=== PATIENT | female | born 1955 | race Caucasian/White ===

== ENCOUNTER → 2017-05-15 | Outpatient (CLI) | payer BC ==
--- NOTE | 2017-05-15 14:14 | KCIC ---
MRI Lumbar Spine without contrast History: Low back pain, left leg pain for several months Technique: Multiplanar, multi sequential noncontrast MR imaging was performed of the lumbar spine. Contrast: None Comparison: None Findings: Lumbar vertebral body stature is preserved. There is negligible posterior subluxation L5 relative to S1. There is moderate to severe degenerative disc disease at L5-S1 greater on the right, associated degenerative endplate change and mild endplate edema. There is yybh-fq-ljfvcfmg degenerative disc disease at L3-4 and minimally at L4-5, minimal disc desiccation at L2-3. Conus terminates at L1. L2-L3: This level was not included on the axial images. There is negligible bulge. Spinal canal and neural foramina are adequate. L3-L4: There is minimal disc osteophyte complex and bulge. There is minimal facet degenerative change. There is mild narrowing of the far lateral recesses greater on the left. There is minimal narrowing of the inferior neural foramina bilaterally. L4-L5: There is ityn-mb-ijxvzvqr facet degenerative change and buckling of the ligamentum flavum. There is wckl-xy-swdwoffz narrowing of the far left lateral recess, mild narrowing of the far right lateral recess. There is left posterior annular tear. Neural foramina are adequate. L5-S1: There is minimal bulge, no significant impingement of the descending S1 nerve roots. There is mild facet degenerative change greater on the right. There is minimal narrowing the right neural foramen, left neural foramen adequate. Impression: 1. There is lelc-nq-ikztcxom narrowing of the far left lateral recess at L4-5, other minimal narrowing of the right lateral recess at L4-5 and bilaterally greater on the left at L3-4. 2. There is degenerative disc disease greatest at L5-S1, to lesser degree at L3-4 and minimally at L4-5. Electronically signed by: Gigi Arreola MD (05/15/2017 2:11 PM) [facility]
== END | disposition home or self-care (01) ==
LOC: KCIC MRI 12:51
PROVIDERS: ATTEND Nurse Practitioner
DX: M51.36 Other intervertebral disc degeneration, lumbar region (principal); M51.37 Other intervertebral disc degeneration, lumbosacral region
CPT/HCPCS: 72148

== ENCOUNTER → 2018-03-25 | Outpatient (CLI) | payer BC ==
[~2018-03-25] MED LIST: BUPIVACAINE MPF 0.5% 10 ML VIAL for KCIC. IJ ONE; IBUP200T58 PO; IOHEXOL 300 MG/ML 50 ML VIAL. INT ART ONE; LIDOCAINE 1% Multi-Dose 20 ML VIAL. ID ONE; LISI-334 PO; MELO7.5T29 PO; PREG75CA PO; SIMV5TAB5 PO; TOBR5DRO14 OD; methylPREDNISolone ACETATE 40 MG/ML VIAL. INT ART ONE
--- NOTE | 2018-03-25 17:05 | KCIC ---
PROCEDURE Therapeutic left hip injection using fluoroscopic guidance. HISTORY Hip pain. TECHNIQUE The procedure was explained to the patient as were potential risks, including infection, bleeding or allergic reaction. All questions were answered. Informed written and verbal consent was obtained. The hip was prepped and draped in the usual sterile manner. Following administration of local anesthetic, a 22-gauge spinal needle was advanced into the hip joint without difficulty, with care taken to avoid the vascular structures. Stylet was removed and following negative aspiration, a mixture of 4 cc Omnipaque-300, 2 cc (80 mg) Depo-Medrol, 4 cc bupivacaine and 4 cc 1% lidocaine were injected without difficulty. Fluoroscopy demonstrates uniform and satisfactory distribution of the injection through the hip. The needle was removed. There was good hemostasis at the injection site. The patient left in stable condition without immediate complication. Patient was advised as to potential postprocedural complications and advised to contact their physician or the emergency room in such event. A single spot image was obtained. FLUOROSCOPY TIME: 17 seconds Electronically signed by: Don Noriega MD (03/25/2018 5:02 PM) [facility]2
== END | disposition home or self-care (01) ==
LOC: KCIC 11:57
PROVIDERS: ATTEND Orthopaedic Surgery Sports Medicine
DX: M25.552 Pain in left hip (principal); G89.29 Other chronic pain; Z88.5 Allergy status to narcotic agent
CPT/HCPCS: 20610; 77002; J1030; Q9967

== ENCOUNTER → 2018-07-15 | Outpatient (CLI) | payer BC ==
[~2018-07-15] MED LIST changes: -BUPIVACAINE MPF 0.5% 10 ML VIAL for KCIC. IJ ONE; +CALC600T4 PO; +FERR325T14 PO; +FISH1CAP PO; -IOHEXOL 300 MG/ML 50 ML VIAL. INT ART ONE; +LEVO5TAB29 PO; -LIDOCAINE 1% Multi-Dose 20 ML VIAL. ID ONE; +MV-M1TAB54 PO; +SENN-161 PO; +SIMV40TA3 PO; +SIMV5TAB14 PO; -SIMV5TAB5 PO; +WARF-31 PO; +WARF3TAB50 PO; -methylPREDNISolone ACETATE 40 MG/ML VIAL. INT ART ONE
[2018-07-15 09:33] LABS: BASO % 1 % (0-3); EOS # 0.2 x10^3/uL (0.0-0.7); EOS % 5 % (0-3); HEMATOCRIT 42.7 % (36.0-47.0); HEMOGLOBIN 14.2 g/dL (12.0-15.5); LYMPH # 1.4 x10^3/uL (1.0-4.8); LYMPH % 35 % (24-48); MEAN CORPUSCULAR HEMOGLOBIN 31 pg (25-35); MEAN CORPUSCULAR HGB CONC 33 g/dL (31-37); MEAN CORPUSCULAR VOLUME 93 fL (79-100); MONO # 0.3 x10^3/uL (0.0-1.1); MONO % 7 % (0-9); NEUT % 52 % (31-73); PLATELET COUNT 171 x10^3/uL (140-400); RED BLOOD COUNT 4.62 x10^6/uL (3.50-5.40); WHITE BLOOD COUNT 3.9 x10^3/uL (4.0-11.0)
[2018-07-15 09:47] LABS: PROTHROMBIN TIME PATIENT 12.6 SEC (11.7-14.0)
[2018-07-15 09:51] LABS: ALBUMIN 3.8 g/dL (3.4-5.0); CALCIUM 9.6 mg/dL (8.5-10.1); CREATININE 0.8 mg/dL (0.6-1.0); GFR 72.7; POTASSIUM 4.4 mmol/L (3.5-5.1)
[2018-07-15 12:18] LABS: BILIRUBIN,URINE NEGATIVE (NEG); CLARITY,URINE CLOUDY; COLOR,URINE YELLOW; NITRITE,URINE NEGATIVE (NEG); PH,URINE 7.5; PROTEIN,URINE NEGATIVE (NEG-TRACE); UROBILINOGEN,URINE 0.2 mg/dL (0.2 mg/dL)
[2018-07-15 12:42] LABS: SQUAMOUS EPITHELIAL CELL,UR FEW /LPF
[2018-07-15 12:46] LABS: AMORPHOUS SEDIMENT,UR PRESENT /HPF; BACTERIA,URINE 0 /HPF (0-FEW); RBC,URINE OCC /HPF (0-2); WBC,URINE OCC /HPF (0-4)
--- NOTE | 2018-07-15 13:22 | EKG ---
[facility] [address] [place] [address] Test Date: 2018-07-15 Test Time: 12:42:05 Pat Name: LISA WARD Department: Room: Gender: F [employer]: : 1955 Requested By: RAHEL DANIEL Order Number: [id number] Reading MD: Miguel Sharif MD Measurements Intervals [place] Rate: 63 P: 78 SC: 172 QRS: 86 QRSD: 92 T: 57 QT: 406 QTc: 419 Interpretive Statements SINUS RHYTHM Electronically Signed On 07-16-2018 11:28:01 ON AIR TALENT by Miguel Sharif MD
--- NOTE | 2018-07-15 16:41 | RAD ---
Chest, 2 views, 07/15/2018: HISTORY: Preop evaluation for hip surgery The heart size is normal. A small dense nodule in the right upper lobe is probably a granuloma. No acute infiltrate is seen. There is no evidence of pleural fluid. Mild spurring is present in the spine. IMPRESSION: No acute cardiopulmonary abnormality is detected. Electronically signed by: Frankie Joiner MD (07/15/2018 4:38 PM) [facility]
== END | disposition home or self-care (01) ==
LOC: SURGPAT 13:04
PROVIDERS: ATTEND Orthopaedic Surgery Sports Medicine
DX: Z01.818 Encounter for other preprocedural examination (principal); M16.12 Unilateral primary osteoarthritis, left hip; M46.04 Spinal enthesopathy, thoracic region; I10 Essential (primary) hypertension
CPT/HCPCS: 36415; 71046; 80048; 81001; 82040; 85025; 85610; 85651; 85730; 87641; 93005

== ENCOUNTER 2018-07-29 08:17 | Inpatient (IN) | payer BC ==
[~2018-07-29] VITALS: Ht 157.5 cm; Wt 67.1 kg
[2018-07-29] VITALS (8 sets, daily range): BP systolic 97–119; BP diastolic 50–62
[~2018-07-29 08:17] MED LIST changes: +HYDROcodone/APAP 7.5/325MG 1 TAB TABLET PO PRN; +HYDROmorphone 2 MG/ML VIAL IV PRN; +IV RINGERS,LACTATED 1000ML 1,000 ML IV SCH; +LIDOCAINE 1% PF 2 ML VIAL. ID PRN; +MELOXICAM 7.5 MG TABLET PO PRN; +MORPHINE SULFATE 2 MG/ML VIAL. IV PRN; +MORPHINE SULFATE 5 MG, KETOROLAC 30MG VIAL 30 MG, ROPIVacaine 0.5% PF 60 ML, EPINEPHrin... INT ART ONE; +ONDANSETRON PF 4 MG/2 ML VIAL. IV PRN; +PROCHLORPERAZINE 10 MG/2 ML VIAL. IV PRN; -SENN-161 PO; +TRANEXAMIC ACID 1,000 MG in IV NS 50ML -- 1ST BAG INJ ONE; +TRANEXAMIC ACID 1,000 MG in IV NS 50ML -- 2ND BAG INJ ONE; -WARF-31 PO; -WARF3TAB50 PO; +fentaNYL PF VIAL 100 MCG/2 ML VIAL IV PRN
[2018-07-29] MEDS ORDERED: WARF-31 PO (08:54)
[2018-07-29] MEDS ORDERED: SCOPOLAMINE 1.5MG PATCH. TD ONE ×2 (09:00→09:02)
[2018-07-29 09:23] LABS: PROTHROMBIN TIME PATIENT 12.9 SEC (11.7-14.0)
[2018-07-29] MEDS ORDERED: MIDAZOLAM HCL/PF 2 MG/2 ML VIAL. ONE (09:23)
[2018-07-29] MEDS ORDERED: FAMOTIDINE 20 MG/2 ML VIAL ONE (09:23)
[2018-07-29] MEDS ORDERED: fentaNYL PF VIAL 100 MCG/2 ML VIAL ONE (09:23)
[2018-07-29] MEDS ORDERED: diphenhydrAMINE 50 MG/ML VIAL ONE (09:23)
[2018-07-29] MEDS ORDERED: PROPOFOL 20 ML IV ONE (09:23)
[2018-07-29] MEDS ORDERED: ONDANSETRON PF 4 MG/2 ML VIAL. ONE (09:23)
[2018-07-29] MEDS ORDERED: LIDOCAINE 2% PF 5 ML VIAL. ONE (09:23)
[2018-07-29] MEDS ORDERED: ROCURONIUM 50 MG/5 ML VIAL. ONE (09:23)
[2018-07-29] MEDS ORDERED: METOCLOPRAMIDE HCL 10 MG/2 ML VIAL. IV PRN (10:00)
[2018-07-29] MEDS ORDERED: PROCHLORPERAZINE 5 MG TABLET. PO PRN (10:00)
[2018-07-29] MEDS ORDERED: 0.9 % SODIUM CHLORIDE 10 ML DISP.SYRIN. IV PRN (10:00)
[2018-07-29] MEDS ORDERED: oxyCODONE IR 5 MG TABLET PO PRN (10:00)
[2018-07-29] MEDS ORDERED: CALCIUM CARBONATE 500 MG TAB.CHEW PO PRN (10:00)
[2018-07-29] MEDS ORDERED: MORPHINE SULFATE 4 MG/ML VIAL. IV PRN (10:00)
[2018-07-29] MEDS ORDERED: DEXTROSE 50% 25 GM / 50ML DISP.SYRIN. IV PRN (10:00)
[2018-07-29] MEDS ORDERED: diphenhydrAMINE 50 MG/ML VIAL IV PRN (10:00)
[2018-07-29] MEDS ORDERED: ZOLPIDEM 5 MG TABLET. PO PRN (10:00)
[2018-07-29] MEDS ORDERED: fentaNYL PF VIAL 100 MCG/2 ML VIAL IV PRN (10:00)
[2018-07-29] MEDS: PREGABALIN 75 MG CAPSULE PO SCH ×2 (11:00→20:38)
[2018-07-29] MEDS: CALCIUM CARBONATE 500 MG TABLET PO SCH (11:00)
[2018-07-29] MEDS: CETIRIZINE HCL 10 MG TABLET. PO SCH (11:00)
[2018-07-29] MEDS: LISINOPRIL 20 MG TABLET PO SCH (11:00)
[2018-07-29] MEDS: MULTIVITAMIN with MINERAL TABLET. PO SCH (11:00)
[2018-07-29] MEDS: SENNOSIDES/DOCUSATE 8.6/50MG TABLET. PO SCH (11:00)
[2018-07-29] MEDS ORDERED: GLYCOPYRROLATE 1 MG/5 ML VIAL. ONE (11:29)
[2018-07-29] MEDS ORDERED: DESFLURANE > 120 MINUTES IH ONE (11:42)
[2018-07-29] MEDS: ONDANSETRON ODT 4 MG TAB.RAPDIS. PO SCH ×2 (12:00→18:00)
[2018-07-29] MEDS: ONDANSETRON PF 4 MG/2 ML VIAL. IV SCH ×2 (12:00→16:29)
--- NOTE | 2018-07-29 12:11 | PDOC4 ---
Operative Note Operative Note Surgeon: David Daniel Asst.: Jv Lind, advanced practice registered nurse who was necessary to assist with manipulating the leg and holding retractors as well as wound closure for this procedure Preoperative diagnosis: Advanced left hip primary degenerative joint disease Postoperative diagnosis: Same Procedure performed: Left total hip arthroplasty Anesthesia: Gen. Findings: Advanced primary degenerative joint disease of left hip. Blood loss: 200 mL Complications: None Components inserted: Gonzalez and nephew 50 mm R3 shell with a 20 posteriorly directed liner, size 5 standard offset anthology stem with a 32+4 Oxinium head Reason for procedure: Patient is a very pleasant individual with severe progressive pain interfering with her activities of daily living and attributable to the above preoperative diagnosis. Clinical and radiographic examination were consistent with the above preoperative diagnosis and after discussion of the risks, benefits, and alternatives, taking into account her failure of conservative therapies, the patient elected to proceed with surgery. Description of procedure: Patient was greeted in the preoperative area by myself for the correct extremity was verified and marked. He was taken back to the operative suite and antibiotics were started as they were brought back. Once in the operative room, patient was transferred gently supine to the operating table and secured to the bed with all pressure points padded. Axillary roll was used. The down leg was padded at the fibular head and heel. Patient was secured the bed with our hip positioning devices. I then appreciated leg lengths in this position. After this, the operative extremity was prepped and draped in her usual sterile fashion including an [place]. We then proceeded to conducted our standard preoperative timeout. I then palpated and marked surface anatomy and joe a line from my standard posterolateral skin incision. Skin was incised with a scalpel and subcutaneous tissue was dissected down the level of fascia with electrocautery. Bleeders were cauterized as a were encountered. Ng elevator was used to sweep aside adherent subcutaneous tissue for later identification and repair of the fascia. Fascia was then incised in line with the skin incision and the gluteus anna was split bluntly in line with its fibers. After this, a lap was used to push bursal tissue posteriorly to identify the piriformis and quadratus, these were taken down, the piriformis was tagged for later repair. Our self-retaining retractor was in place. At this point, identified the hip capsule incised in a T -type incision, taking ends for later repair. The hip was dislocated. I then palpated and marked with electrocautery areas at the greater and lesser trochanters and center of the femoral head and I made measurements for length and offset. I then joe a line on the neck about 1 cm proximal lesser trochanter and made my neck cut through this. The bony remnant was delivered from the operative field. We placed the acetabular retractors and inspected the acetabulum. I excised the soft tissues from the floor the acetabulum as well as the labrum. Osteophytes were taken down posteriorly. After this, we began reaming and reamed down until we encountered a punctate bleeding bony bed. The operative field and then thoroughly irrigated out. The cup was then impacted referencing [place] anatomy and the crossbar attachment. I had identified the transverse acetabular ligament. After this, I palpated for the posterior column and greater sciatic notch and referenced this to place a screw into the posterior column. The operative field was irrigated again and my polyethylene liner was then impacted in position and confirmed that it was fully seated on circumferential visualization. We then removed our acetabular retractors and used our proximal femoral elevator and repositioned the leg. I used the kevin cutting osteotome followed by canal finding reamer followed by lateralizing reamer. We then began broaching and broached to the above size and trialed different head and necks, using our measurements as a guide as well. The above sizes gave the best range of motion and stability. After this, the trial components were removed and the canal was thoroughly irrigated. I then impacted my femoral stem into position. We then re-trialed the head sizes and selected the above size. The hip was redislocated and the Sterling taper region was washed and dried. The femoral head was then gently impacted in position and the acetabulum was inspected and irrigated to make sure was free of debris. After this, the hip was reduced. Excellent range of motion and stability were achieved. I was happy with the leg lengths. We then closed capsule with simple interrupted #2 Ethibond. Piriformis was reapproximated through drill holes. I then injected my periarticular mixture into the jens-incisional soft tissues below. Fascia was closed was running #2 Quill suture. Inverted interrupted 2-0 Vicryl in a multilayered fashion was used for subcutaneous tissue and running 4- 0 Monocryl for skin. Prior to wound closure, all counts correct 2. No complications. At the conclusion, the hip region was cleansed and dried and our incisional wound vacuum was applied. Patient tolerated surgery well. At the conclusion, they were laid supine and transferred gently supine to the hospital bed and taken to PACU in a stable and extubated condition. Postoperative plan is to admit the patient to the joint center for DVT and antibiotic prophylaxis as well as to begin the rehabilitation and receive likely IV pain medicine. DAVID DANIEL II, MD Jul 29, 2018 12:11
--- NOTE | 2018-07-29 13:18 | RAD ---
EXAM: AP pelvis, low AP pelvis DATE: 07/29/2018 1:04 PM INDICATION: POST OP LT HIP ARTHROPLASTY COMPARISON: No Prior FINDINGS: Changes of the left total hip arthroplasty are now seen. Components are well seated without significant periprosthetic lucency. Slightly vertical orientation of the left acetabular cup may be projectional. Expected postoperative soft tissue changes are seen. Right hip joint degenerative changes are seen. No evidence of acute fracture or dislocation. IMPRESSION: 1. Changes of left total hip arthroplasty without definite hardware complication or fracture. 2. Slight vertical orientation of the left acetabular cup may be projectional Electronically signed by: Sergo Ware MD (07/29/2018 1:15 PM) [facility]
--- NOTE | 2018-07-29 14:22 | NUR ---
Arrived to unit by bed from PACU. Drowsy but awakens easily. No c/o. Left hip dressing is d/i with ELISHA dressing. IVF's intact and infusing. O2 at 2l per n/c. TEDs and SCD's on bilaterally. Oriented to room and controls. Side rails up x's 2 with call light in reach. Spouse at bedside. Cont. monitor.
[2018-07-29] MEDS ORDERED: WARFARIN 7.5 MG TABLET. PO ONE (16:00)
[2018-07-29] MEDS: ceFAZolin SODIUM 1 GM in IV DEXTROSE 5% 50 ML IV SCH ×2 (16:28→22:06)
[2018-07-29] MEDS: FERROUS SULFATE 325 MG TABLET. PO SCH (16:37)
[2018-07-29] MEDS: IV NORMAL SALINE 1000ML BAG 1,000 ML IV SCH (19:30)
[2018-07-29] MEDS: oxyCODONE IR 5 MG TABLET PO PRN (19:31)
[2018-07-29] MEDS: SIMVASTATIN 40 MG TABLET. PO SCH (20:37)
[2018-07-30 03:30] VITALS: BP 108/58
[2018-07-30] MEDS: ceFAZolin SODIUM 1 GM in IV DEXTROSE 5% 50 ML IV SCH (03:36)
[2018-07-30] MEDS: oxyCODONE IR 5 MG TABLET PO PRN ×5 (03:42→21:27)
[2018-07-30 04:37] LABS: HEMOGLOBIN 10.7 g/dL (12.0-15.5)
[2018-07-30 05:04] LABS: PROTHROMBIN TIME PATIENT 17.6 SEC (11.7-14.0)
[2018-07-30] MEDS: ONDANSETRON PF 4 MG/2 ML VIAL. IV SCH ×2 (06:00)
[2018-07-30] MEDS: ONDANSETRON ODT 4 MG TAB.RAPDIS. PO SCH ×2 (06:00)
[2018-07-30] MEDS ORDERED: MAGNESIUM HYDROXIDE 2,400 MG/30 ML ORAL.SUSP. PO PRN (06:00)
[2018-07-30 07:00] VITALS: BP 91/50
[2018-07-30] MEDS: SENNOSIDES/DOCUSATE 8.6/50MG TABLET. PO SCH (07:53)
[2018-07-30] MEDS: MULTIVITAMIN with MINERAL TABLET. PO SCH (07:53)
[2018-07-30] MEDS: CALCIUM CARBONATE 500 MG TABLET PO SCH (07:53)
[2018-07-30] MEDS: CETIRIZINE HCL 10 MG TABLET. PO SCH (07:53)
[2018-07-30] MEDS: FERROUS SULFATE 325 MG TABLET. PO SCH ×2 (07:53→16:36)
[2018-07-30] MEDS: ACETAMINOPHEN 500 MG TABLET PO SCH ×3 (07:53→21:28)
[2018-07-30] MEDS: PREGABALIN 75 MG CAPSULE PO SCH ×2 (07:53→21:27)
[2018-07-30 08:20] VITALS: BP 115/63
--- NOTE | 2018-07-30 08:36 | PDOC ---
ORTHO PROGRESS NOTES Subjective Her pain is tolerable. She is tolerating regular diet. She has been up and walking. Vitals Vital Signs Date Time Temp Pulse Resp B/P (MAP) Pulse Ox O2 Delivery O2 Flow Rate FiO2 07/30/18 07:00 98.7 74 20 91/50 (64) Room Air 98.7 07/30/18 04:33 93 07/29/18 12:30 10 Labs Laboratory Tests Test 07/29/18 09:00 07/29/18 12:27 07/30/18 04:00 Prothrombin Time 12.9 SEC (11.7-14.0) 17.6 SEC (11.7-14.0) Prothromb Time International Ratio 1.0 (0.8-1.1) 1.5 (0.8-1.1) Activated Partial Thromboplast Time 33 SEC (24-38) Glucose (Fingerstick) 85 mg/dL (70-99) Hemoglobin 10.7 g/dL (12.0-15.5) Hematocrit 32.0 % (36.0-47.0) Mean Corpuscular Hemoglobin Concent 34 g/dL (31-37) Laboratory Tests Test 07/29/18 09:00 07/29/18 12:27 07/30/18 04:00 Prothrombin Time 12.9 SEC (11.7-14.0) 17.6 SEC (11.7-14.0) Prothromb Time International Ratio 1.0 (0.8-1.1) 1.5 (0.8-1.1) Activated Partial Thromboplast Time 33 SEC (24-38) Glucose (Fingerstick) 85 mg/dL (70-99) Hemoglobin 10.7 g/dL (12.0-15.5) Hematocrit 32.0 % (36.0-47.0) Mean Corpuscular Hemoglobin Concent 34 g/dL (31-37) Notes She is awake and alert. Normal motor and sensation are present in her left lower extremity. Dressing is intact Assessment and Plan She will progress with PT and OT today. Coumadin for anticoagulation. RAHEL DANIEL II, MD Jul 30, 2018 08:36
[2018-07-30] MEDS ORDERED: FERROUS SULFATE 325 MG TABLET. PO SCH (09:00)
[2018-07-30] MEDS: LISINOPRIL 20 MG TABLET PO SCH (09:00)
[2018-07-30] MEDS: IV NORMAL SALINE 1000ML BAG 1,000 ML IV SCH (09:48)
[2018-07-30] MEDS ORDERED: ONDANSETRON ODT 4 MG TAB.RAPDIS. PO PRN (12:00)
[2018-07-30] MEDS ORDERED: ONDANSETRON PF 4 MG/2 ML VIAL. IV PRN (12:00)
[2018-07-30 15:31] VITALS: BP 126/63
--- NOTE | 2018-07-30 15:41 | NUR ---
Pharmacy Warfarin Dosing Note S:Pharmacy consulted to assist with anticoagulation therapy started 07/28/18 with target INR: 1.6 - 2.5 O:LISA WARD is a 63 year old F with ISIDRO LABS: Last INR: 1.5 Last HGB: 10.7 Last HCT: 32 Last PLT: - Last dose of 7.5 mg given on 07/29/18 at 1634 A:INR of 1.5 is below desired range. Target range for this patient is: 1.6 - 2.5 P: Warfarin dose: 3 mg Today at 1600 Bridge Therapy: None Next INR due tomorrow Pharmacy anticoagulation service will continue to follow. Luz Elena Shanks RPH, 07/30/18 [id number]
[2018-07-30] MEDS ORDERED: WARFARIN 3 MG TABLET. PO ONE (16:00)
[2018-07-30] MEDS ORDERED: BISACODYL 10 MG SUPP.RECT. PR PRN (16:00)
[2018-07-30 18:42] VITALS: BP 126/70
[2018-07-30] MEDS: SIMVASTATIN 40 MG TABLET. PO SCH (21:27)
[2018-07-31] MEDS: ACETAMINOPHEN 500 MG TABLET PO SCH ×4 (03:00→20:57)
[2018-07-31] MEDS: oxyCODONE IR 5 MG TABLET PO PRN ×4 (05:16→20:57)
[2018-07-31 05:30] VITALS: BP 107/55
[2018-07-31 06:52] LABS: HEMATOCRIT 30.5 % (36.0-47.0); HEMOGLOBIN 10.3 g/dL (12.0-15.5)
--- NOTE | 2018-07-31 07:12 | PDOC ---
ORTHO PROGRESS NOTES Subjective Patient sitting up in bed with minimal c/o pain. Post-op Day: 2 Procedure L ISIDRO Vitals Vital Signs Date Time Temp Pulse Resp B/P (MAP) Pulse Ox O2 Delivery O2 Flow Rate FiO2 07/31/18 06:16 20 07/31/18 05:30 98.4 71 107/55 (72) 100 Room Air 98.4 Labs Laboratory Tests Test 07/29/18 09:00 07/29/18 12:27 07/30/18 04:00 Prothrombin Time 12.9 SEC (11.7-14.0) 17.6 SEC (11.7-14.0) Prothromb Time International Ratio 1.0 (0.8-1.1) 1.5 (0.8-1.1) Activated Partial Thromboplast Time 33 SEC (24-38) Glucose (Fingerstick) 85 mg/dL (70-99) Hemoglobin 10.7 g/dL (12.0-15.5) Hematocrit 32.0 % (36.0-47.0) Mean Corpuscular Hemoglobin Concent 34 g/dL (31-37) Assessment and Plan POD#2 S/P L ISIDRO moving extremities well motor and sensory intact distally dressing dry and intact continue PT CHUNG CARTAGENA APRN Jul 31, 2018 07:12
[2018-07-31 07:32] LABS: PROTHROMBIN TIME PATIENT 26.1 SEC (11.7-14.0)
[2018-07-31 08:40] VITALS: BP 88/46
[2018-07-31] MEDS: MULTIVITAMIN with MINERAL TABLET. PO SCH (08:41)
[2018-07-31] MEDS: CALCIUM CARBONATE 500 MG TABLET PO SCH (08:41)
[2018-07-31] MEDS: CETIRIZINE HCL 10 MG TABLET. PO SCH (08:42)
[2018-07-31] MEDS: PREGABALIN 75 MG CAPSULE PO SCH ×2 (08:42→20:57)
[2018-07-31] MEDS: FERROUS SULFATE 325 MG TABLET. PO SCH ×2 (08:42→17:26)
[2018-07-31] MEDS: SENNOSIDES/DOCUSATE 8.6/50MG TABLET. PO SCH (08:42)
[2018-07-31] MEDS: LISINOPRIL 20 MG TABLET PO SCH (08:44)
--- NOTE | 2018-07-31 10:22 | DISCH ---
DISCHARGE WITH HOME HEALTH DISCHARGE INFORMATION: Discharge Date: Aug 01, 2018 Final Diagnosis: L ISIDRO Condition on Discharge: Stable CODE STATUS: Code Status: Full HOME HEALTH: Face to Face: I certify this patient is under my care and that I, or a nurse practitioner or physician's research assistant member working with me, had a face to face encounter that meets the physician face to face encounter requirements with this patient on []. Medical Complications: S/P Joint Replacement Group Home For: Admin/Educate Injections Physical Therapy For: Evalulation/Treatment Occupational Therapy For: Evaluation/Treatment Pt Meets Homebound Status: Poor coordination w/ amb., Unsteady balance w/ amb, , Limited distance walking POST DISCHARGE ORDERS: Activity Instructions for Disc: Activity as tolerated Weight Bearing Status after Di: As tolerated Bathing Instructions: Shower-keep dressing dry DIET AFTER DISCHARGE: Regular Wound/Incision Care: Ice to area for comfort, Keep wound/cast CDI, Do not change dressing FOLLOW-UP: Follow up with: Anna in 2 wks Warfarin Follow UP: Pharmacy CERTIFICATION STATEMENT: Certification Statement: Certification Statement: Based on the above finding, I certify that this patient is confined to the home and needs intermittent prison care, physical therapy and/or speech therapy, or continues to need occupational therapy.~ This patient is under my care, and I have initiated the establishment of the plan of care.~ This patient will be followed by myself or a community physician who will periodically review the plan of care. Home Meds Reported Medications Warfarin Sodium (WARFARIN SODIUM) 5 Mg Tablet, 5 MG PO DAILY for blood thinner, #30 TAB 07/29/18 Ferrous Sulfate (FERROUS SULFATE) 325 Mg Tablet, 325 MG PO DAILY for SUPPLEMENT , TAB 07/15/18 Fish Oil/Dha/Epa (FISH OIL 1,200 MG FISH OIL) 1 Each Capsule, 1 EACH PO BID for SUPPLEMENT, CAP 07/15/18 Calcium Carbonate (CALCIUM) 600 Mg Tablet, 1200 MG PO DAILY for SUPPLEMENT, TAB 07/15/18 Mv-Mn/Folic Acid/Calcium/Vit K (Women's 50 Plus Multivit Tab) 1 Each Tablet, 1 EACH PO DAILY for SUPPLEMENT, TAB 07/15/18 Levocetirizine Dihydrochloride (XYZAL) 5 Mg Tablet, 5 MG PO DAILY for SINUS/ ALLERGY PROBLEMS, TAB 07/15/18 Simvastatin (SIMVASTATIN) 40 Mg Tablet, 40 MG PO HS for FOR CHOLESTEROL, #30 TAB 0 Refills 07/15/18 Lisinopril (LISINOPRIL) 20 Mg Tablet, 1 TAB PO DAILY, #30 TAB 5 Refills 03/25/18 Pregabalin (LYRICA) 75 Mg Capsule, 1 CAP PO BID, #60 CAP 1 Refill 03/25/18 Meloxicam (MELOXICAM) 7.5 Mg Tablet, 15 MG PO DAILY for PAIN RELIEF, #30 TAB 2 Refills 03/25/18 RAHEL DANIEL II, MD Jul 31, 2018 10:22
--- NOTE | 2018-07-31 10:58 | NUR ---
Pharmacy Warfarin Dosing Note S:Pharmacy consulted to assist with anticoagulation therapy started 07/28/18 with target INR: 1.6 - 2.5 O:LISA WARD is a 63 year old F with ISIDRO LABS: Last INR: 2.4 Last HGB: 10.7 Last HCT: 32 Last PLT: - Last dose of 3 mg given on 07/30/18 at 1634 Previous Regimen: Vitamin K given: Drug Interaction Changes: Ongoing Drug Interactions: A:INR of 2.4 is WITHIN desired range. Target range for this patient is: 1.6 - 2.5 P: Warfarin dose: Hold Today at 1600 FOR INR LEVEL INCREASED TOO FAST. Bridge Therapy: None Next INR due IN AM Pharmacy anticoagulation service will continue to follow. AMA PERLA [facility], 07/31/18 [id number]
[2018-07-31 11:36] VITALS: BP 109/58
--- NOTE | 2018-07-31 14:43 | NUR ---
Pharmacy Warfarin Dosing Note S:Pharmacy consulted to assist with anticoagulation therapy started 07/28/18 with target INR: 1.6 - 2.5 O:LISA WARD is a 63 year old F with ISIDRO LABS: Last INR: 2.4 Last HGB: 10.7 Last HCT: 32 Last PLT: - Last dose of 3 mg given on 07/30/18 at 1634 Previous Regimen: Vitamin K given: Drug Interaction Changes: Ongoing Drug Interactions: A:INR of 2.4 is within desired range. Target range for this patient is: 1.6 - 2.5 P: Warfarin dose: Hold Today at 1600 Bridge Therapy: None Next INR due IN AM Pharmacy anticoagulation service will continue to follow. AMA PERLA [facility], 07/31/18 2058
--- NOTE | 2018-07-31 16:24 | NUR ---
Brigitte is doing well. she was able to tolerate both rehab sessions. pain is better controlled today with the oral medications. she is rubbing her upper thigh as instructed by therapist
--- NOTE | 2018-07-31 17:07 | PATHOLOGY ---
[facility] Accession Number: [id number] . 01 Material submitted: . LEFT FEMORAL HEAD . 02 Diagnosis: Femoral head, left total hip arthroplasty: - Advanced degenerative arthritis. (JPM/db; 07/31/2018) LBQ/07/31/2018 . 02 Electronically signed: . David Sosa MD, Pathologist NPI- [id number] . 01 Gross description: . The specimen is received in formalin, labeled "Jasmyne Landry, left femoral head", is a femoral head measuring 4.5 x 4.0 x 3.5 cm with an attached femoral neck measuring 2.0 cm in length by 4.0 x 2.0 cm. The neck resection margin is composed of trabeculated, hemorrhagic, smooth bone. The femoral head articular cartilage shows an area of eburnation with the remaining kidd-brown and irregular. Peripheral osteophytes and a fovea is present. The specimen is sectioned to show thinning of the articular cartilage corresponding to the eburnated area with the underlying bone, yellow-red and trabeculated. Inventory Control Specialist tissue is submitted in A1 after decalcification. (Femoral neck margin inked blue) SHS/SHS . 02 Pathologist provided ICD-10: M16.12 . 02 CPT . 934399, 533158 Specimen Comment: A courtesy copy of this report has been sent to Specimen Comment: [phone], . Specimen Comment: Report sent to / DR SEPULVEDA Specimen Comment: A duplicate report has been generated due to demographic updates. Performed at: [address], [place], [place] [id number] MD Rashad Diaz MD Phone: [phone] Performed at: 02 [facility] [address] [place] [id number] MD David Sosa MD Phone: [phone]
[2018-07-31 17:37] VITALS: BP 109/55
[2018-07-31] MEDS: SIMVASTATIN 40 MG TABLET. PO SCH (20:57)
[2018-08-01] MEDS: ACETAMINOPHEN 500 MG TABLET PO SCH ×3 (03:00→14:54)
[2018-08-01] MEDS: oxyCODONE IR 5 MG TABLET PO PRN ×4 (04:54→14:55)
[2018-08-01 05:00] VITALS: BP 119/56
--- NOTE | 2018-08-01 06:36 | NUR ---
Reading in bed. Ice pack on left hip/thigh. Anticipates dismissal today.
[2018-08-01 07:39] LABS: HEMOGLOBIN 10.3 g/dL (12.0-15.5)
[2018-08-01] MEDS: CALCIUM CARBONATE 500 MG TABLET PO SCH (08:27)
[2018-08-01] MEDS: MULTIVITAMIN with MINERAL TABLET. PO SCH (08:27)
[2018-08-01] MEDS: SENNOSIDES/DOCUSATE 8.6/50MG TABLET. PO SCH (08:28)
[2018-08-01] MEDS: CETIRIZINE HCL 10 MG TABLET. PO SCH (08:28)
[2018-08-01] MEDS: FERROUS SULFATE 325 MG TABLET. PO SCH (08:28)
[2018-08-01] MEDS: PREGABALIN 75 MG CAPSULE PO SCH (08:28)
[2018-08-01 08:30] VITALS: BP 121/56
[2018-08-01] MEDS: LISINOPRIL 20 MG TABLET PO SCH (08:30)
--- NOTE | 2018-08-01 09:11 | PDOC ---
ORTHO PROGRESS NOTES Subjective She tells me her pain is tolerable. She has made good progress with PT and OT. Vitals Vital Signs Date Time Temp Pulse Resp B/P (MAP) Pulse Ox O2 Delivery O2 Flow Rate FiO2 08/01/18 08:30 91 121/56 08/01/18 08:29 Room Air 08/01/18 06:00 16 08/01/18 05:00 98.4 98 98.4 Labs Laboratory Tests Test 07/31/18 05:33 07/31/18 05:53 08/01/18 06:35 Hemoglobin 10.3 g/dL (12.0-15.5) 10.3 g/dL (12.0-15.5) Hematocrit 30.5 % (36.0-47.0) 30.0 % (36.0-47.0) Mean Corpuscular Hemoglobin Concent 34 g/dL (31-37) 34 g/dL (31-37) Prothrombin Time 26.1 SEC (11.7-14.0) 20.0 SEC (11.7-14.0) Prothromb Time International Ratio 2.4 (0.8-1.1) 1.7 (0.8-1.1) Laboratory Tests Test 08/01/18 06:35 Hemoglobin 10.3 g/dL (12.0-15.5) Hematocrit 30.0 % (36.0-47.0) Mean Corpuscular Hemoglobin Concent 34 g/dL (31-37) Prothrombin Time 20.0 SEC (11.7-14.0) Prothromb Time International Ratio 1.7 (0.8-1.1) Notes She is awake and alert and sitting in a chair. Normal motor and sensation are present in her operative extremity. Dressing is intact. Assessment and Plan She'll be discharged home today with home health. Given her recent surgery, and limitations in mobility, I would anticipate she would need a walker. She will follow up with me in 2 weeks. RAHEL DANIEL II, MD Aug 01, 2018 09:11
--- NOTE | 2018-08-01 09:13 | PDOC3 ---
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 Brief Hospital Course Allergies Allergies Coded Allergies Type Severity Reaction Last Updated Verified meperidine Allergy Intermediate 07/29/18 Yes Vital Signs Vital Signs Date Time Temp Pulse Resp B/P (MAP) Pulse Ox O2 Delivery O2 Flow Rate FiO2 08/01/18 08:30 91 121/56 08/01/18 08:29 Room Air 08/01/18 06:00 16 08/01/18 05:00 98.4 98 98.4 Lab Results Laboratory Tests Test 07/31/18 05:33 07/31/18 05:53 08/01/18 06:35 Hemoglobin 10.3 g/dL (12.0-15.5) 10.3 g/dL (12.0-15.5) Hematocrit 30.5 % (36.0-47.0) 30.0 % (36.0-47.0) Mean Corpuscular Hemoglobin Concent 34 g/dL (31-37) 34 g/dL (31-37) Prothrombin Time 26.1 SEC (11.7-14.0) 20.0 SEC (11.7-14.0) Prothromb Time International Ratio 2.4 (0.8-1.1) 1.7 (0.8-1.1) Laboratory Tests Test 08/01/18 06:35 Hemoglobin 10.3 g/dL (12.0-15.5) Hematocrit 30.0 % (36.0-47.0) Mean Corpuscular Hemoglobin Concent 34 g/dL (31-37) Prothrombin Time 20.0 SEC (11.7-14.0) Prothromb Time International Ratio 1.7 (0.8-1.1) Brief Hospital Course Ms. Landry is a 63 old female who presented to my outpatient orthopedic surgery clinic with complaints of severe and progressive pain that failed conservative therapies including injections. We had a discussion of the risks, benefits, alternatives to total hip arthroplasty and she elected to proceed. She tolerated surgery well and recovered well from anesthesia in the PACU. She was then taken to the joint Center for care and observation. She did receive PT, OT , DVT and antibiotic prophylaxis. She recovered well from surgery and remained hemodynamically stable and afebrile throughout the hospitalization. Pain was controlled on oral pain medicine at the time of discharge. Good progress was made with therapy throughout the hospitalization, and activities of daily living were accomplished by the patient. The incision was clean dry and intact and the operative extremity had normal motor and sensation. Discharge Information Condition at Discharge: Stable Follow Up: Weeks Disposition/Orders: D/C to Home w/ HH Scheduled Calcium Carbonate (Calcium) 600 Mg Tablet, 1,200 MG PO DAILY for SUPPLEMENT, ( Reported) Entered as Reported by: GONZALEZ VICK on 07/15/181440 Last Taken: Unknown Dose on 07/19/18799 Last Action: Converted on 951 by KT DANIEL MD Ferrous Sulfate (Ferrous Sulfate) 325 Mg Tablet, 325 MG PO DAILY for SUPPLEMENT, (Reported) Entered as Reported by: GONZALEZ VICK on 07/15/181440 Last Taken: Unknown Dose on 07/19/18799 Last Action: Continued on 951 by KT DANIEL MD Fish Oil/Dha/Epa (Fish Oil 1,200 Mg Fish Oil) 1 Each Capsule, 1 EACH PO BID for SUPPLEMENT, (Reported) Entered as Reported by: GONZALEZ VICK on 07/15/181440 Last Taken: Unknown Dose on 07/19/18799 Last Action: HELD on 07/29/18951 by KT DANIEL MD Levocetirizine Dihydrochloride (Xyzal) 5 Mg Tablet, 5 MG PO DAILY for SINUS/ ALLERGY PROBLEMS, (Reported) Entered as Reported by: GONZALEZ VICK on 07/15/181440 Last Taken: Unknown Dose on 07/29/1830 Last Action: Converted on 07/29/18951 by KT DANIEL MD Lisinopril (Lisinopril) 20 Mg Tablet, 1 TAB PO DAILY, #30 Ref 5 (Reported) Entered as Reported by: CONSTANTINE RINCON on 03/25/18 1156 Last Taken: Unknown Dose on 07/28/18 08 Last Action: Continued on 07/29/18951 by KT DANIEL MD Mv-Mn/Folic Acid/Calcium/Vit K (Women's 50 Plus Multivit Tab) 1 Each Tablet, 1 EACH PO DAILY for SUPPLEMENT, (Reported) Entered as Reported by: GONZALEZ VICK on 2/18/19 1441 Last Taken: Unknown Dose on 07/19/18 0800 Last Action: HELD on 07/29/18951 by KT DANIEL MD Pregabalin (Lyrica) 75 Mg Capsule, 1 CAP PO BID, #60 Ref 1 (Reported) Entered as Reported by: CONSTANTINE RINCON on 03/25/18 1156 Last Taken: Unknown Dose on 07/29/18 0730 Last Action: Continued on 07/29/18951 by KT DANIEL MD Simvastatin (Simvastatin) 40 Mg Tablet, 40 MG PO HS for FOR CHOLESTEROL, #30 Ref 0 (Reported) Entered as Reported by: GONZALEZ VICK on 07/15/18 1437 Last Taken: Unknown Dose on 07/28/18 2100 Last Action: Converted on 07/29/18951 by KT DANIEL MD Warfarin Sodium (Warfarin Sodium) 5 Mg Tablet, 5 MG PO DAILY for blood thinner, #30 (Reported) Entered as Reported by: Katelyn Andres on 07/29/18 0854 Last Taken: Unknown Dose on 07/28/181699 Last Action: HELD on 07/29/18951 by KT DANIEL MD Discontinued Medications Meloxicam (Meloxicam) 7.5 Mg Tablet, 15 MG PO DAILY for PAIN RELIEF, #30 Ref 2 ( Reported) Entered as Reported by: CONSTANTINE RINCON on 03/25/18 115 Last Taken: Unknown Dose on 07/28/181699 Last Action: HELD on 07/29/18951 by KT DANIEL MD Patient Instructions Patient Instructions She will be discharged home. Home health care has been set up. We will get her started on outpatient therapy as soon as we are able. The patient will be on Coumadin for a month. She can weight-bear as tolerated. Worrisome signs and symptoms that should prompt a phone call to my office were discussed. We' ll see her back in 2 weeks, sooner should a problem arise. RAHEL DANIEL II, MD Aug 01, 2018 09:13
[2018-08-01] MEDS ORDERED: SENN-161 PO (12:05)
[2018-08-01] MEDS ORDERED: FERR325T14 PO (12:06)
[2018-08-01] MEDS ORDERED: WARF3TAB50 PO (12:06)
[2018-08-01] MEDS ORDERED: WARFARIN 3 MG TABLET. PO ONE (13:00)
[2018-08-01 13:16] VITALS: BP 105/63
--- NOTE | 2018-08-01 13:47 | NUR ---
Pharmacy Warfarin Dosing Note S: Pharmacy consulted to assist with anticoagulation therapy started 07/28/18 O: LISA WARD is a 63 year old F with ISIDRO LABS: Last INR: 1.7 Last HGB: 10.3 Last HCT: 30 Last PLT: - Last dose given on 07/30/18 at 1634 Vitamin K given: Ongoing Drug Interactions: A:INR of 1.7 is within desired range, down significantly from value of 2.4 yesterday after holding warfarin dose for 07/31. Will give patient warfarin 3 mg today then discharge on warfarin 3 mg/day. P: Warfarin dose: 3 mg today prior to discharge Bridge Therapy: None Next INR due Sunday, August 05 Outpatient pharmacy anticoagulation service will continue to follow. OZ DIAZ [facility], 08/01/18 1607
--- NOTE | 2018-08-01 16:06 | NUR ---
reviewed written discharge instructions with Brigitte. reviewed restrictions to activities of daily living such as bathing, driving. reviewed new medications Coumadin and Percocet and side effects. discussed incisional care regarding the care of the ELISHA and when bathing. reviewed the usage of medigrip . both verbalized understanding and answered questions regarding follow up. script for Percocet script given and the Coumadin pills. all belongings packed up by . dismissed to home with home health
== END 2018-08-01 15:55 | disposition home health service (06) | DRG 470 ==
LOC: OPSVCIP 08:17 → 4 SOUTHEST 14:22
PROVIDERS: ADMIT Orthopaedic Surgery Sports Medicine; ATTEND Orthopaedic Surgery Sports Medicine
PROC: 0SRB06Z Replacement of Left Hip Joint with Oxidized Zirconium on Polyethylene Synthetic Substitute, Open Approach (ICD-10-PCS; principal; 2018-07-29 10:00)
DX: M16.12 Unilateral primary osteoarthritis, left hip (principal); I10 Essential (primary) hypertension; E78.5 Hyperlipidemia, unspecified; Z90.710 Acquired absence of both cervix and uterus; Z88.8 Allergy status to other drugs, medicaments and biological substances
CPT/HCPCS: 36415; 72170; 82962; 85014; 85018; 85610; 85730; 86850; 86900; 86901; 88304; 88311; A7015; C1713; J0171; J0690; J0696; J0780; J1200; J1885; J2001; J2250; J2270; J2405; J2704; J2795; J3010; J3490; J7030; J7120; 97116; 97150; 97530; 97535

== ENCOUNTER → 2019-07-28 | Outpatient (CLI) | payer BC ==
[~2019-07-28] MED LIST changes: +BUPIVACAINE MPF 0.5% 10 ML VIAL for KCIC. IJ ONE; -HYDROcodone/APAP 7.5/325MG 1 TAB TABLET PO PRN; -HYDROmorphone 2 MG/ML VIAL IV PRN; +IOHEXOL 300 MG/ML 50 ML VIAL. INT ART ONE; -IV RINGERS,LACTATED 1000ML 1,000 ML IV SCH; +LIDOCAINE 1% Multi-Dose 20 ML VIAL. ID ONE; -LIDOCAINE 1% PF 2 ML VIAL. ID PRN; -MELOXICAM 7.5 MG TABLET PO PRN; -MORPHINE SULFATE 2 MG/ML VIAL. IV PRN; -MORPHINE SULFATE 5 MG, KETOROLAC 30MG VIAL 30 MG, ROPIVacaine 0.5% PF 60 ML, EPINEPHrin... INT ART ONE; -ONDANSETRON PF 4 MG/2 ML VIAL. IV PRN; -PROCHLORPERAZINE 10 MG/2 ML VIAL. IV PRN; +SENN-161 PO; +SIMV40TA18 PO; -SIMV40TA3 PO; -TRANEXAMIC ACID 1,000 MG in IV NS 50ML -- 1ST BAG INJ ONE; -TRANEXAMIC ACID 1,000 MG in IV NS 50ML -- 2ND BAG INJ ONE; +WARF-31 PO; +WARF3TAB50 PO; -fentaNYL PF VIAL 100 MCG/2 ML VIAL IV PRN; +methylPREDNISolone ACETATE 40 MG/ML VIAL. INT ART ONE
--- NOTE | 2019-07-28 13:27 | KCIC ---
PROCEDURE Therapeutic right hip injection using fluoroscopic guidance. HISTORY Hip pain. TECHNIQUE The procedure was explained to the patient as were potential risks, including infection, bleeding or allergic reaction. All questions were answered. Informed written and verbal consent was obtained. The hip was prepped and draped in the usual sterile manner. Following administration of local anesthetic, a 22-gauge spinal needle was advanced into the hip joint without difficulty, with care taken to avoid the vascular structures. Stylet was removed and following negative aspiration, a mixture of 4 cc Omnipaque-300, 2 cc (80 mg) Depo-Medrol, 4 cc bupivacaine and 4 cc 1% lidocaine were injected without difficulty. Fluoroscopy demonstrates uniform and satisfactory distribution of the injection through the hip. The needle was removed. There was good hemostasis at the injection site. The patient left in stable condition without immediate complication. Patient was advised as to potential postprocedural complications and advised to contact their physician or the emergency room in such event. A single spot image was obtained. FLUOROSCOPY TIME: 32 seconds Electronically signed by: Don Noriega MD (07/28/2019 1:24 PM) [id number]
== END ==
LOC: KCIC 10:37
PROVIDERS: ATTEND Orthopaedic Surgery Sports Medicine
DX: M16.11 Unilateral primary osteoarthritis, right hip (principal)
CPT/HCPCS: 20610; 77002; J1030; J3490; Q9967

== ENCOUNTER → 2020-09-02 | Outpatient (CLI) | payer BC ==
[~2020-09-02] MED LIST changes: -BUPIVACAINE MPF 0.5% 10 ML VIAL for KCIC. IJ ONE; +BUPIVACAINE MPF 0.5% 10 ML VIAL. INT ART ONE; -CALC600T4 PO; +CALC600T60 PO; -LISI-334 PO; +LISI20TA18 PO; +PREG-9 PO; -PREG75CA PO
--- NOTE | 2020-09-02 15:29 | KCIC ---
Examination: Fluoro Guided Therapeutic injection right hip. History: Right hip pain Comparison: None available FINDINGS: Relative benefits risks and alternatives to the procedure were discussed and verbal and written infor med consent was obtained. The patient was carefully prepped and draped in a sterile fashion. Lidoca ine was used for local anesthesia. A 22-gauge spinal needle was advanced to the level of the hip jason nt at the femoral neck. A mixture of 4 mL of Omnipaque, 4 mL of lidocaine, 4 mL of bupivacaine ,80 mg of Depo-Medrol was injected. Digital image was obtained showing contrast in the joint. Impression: Therapeutic injection right hip. 15 seconds of fluoroscopy was used for the procedure. Electronically signed by: Bob Mata MD (09/02/2020 3:27 PM) [id number]
== END | disposition home or self-care (01) ==
LOC: KCIC 09:55
PROVIDERS: ATTEND Physician Assistant
DX: M25.551 Pain in right hip (principal); E78.00 Pure hypercholesterolemia, unspecified; I10 Essential (primary) hypertension; E03.9 Hypothyroidism, unspecified; M19.90 Unspecified osteoarthritis, unspecified site; Z90.710 Acquired absence of both cervix and uterus; Z98.890 Other specified postprocedural states; Z72.89 Other problems related to lifestyle; Z79.899 Other long term (current) drug therapy; Z88.8 Allergy status to other drugs, medicaments and biological substances
CPT/HCPCS: 20610; 77002; J1030; J3490; Q9967

== ENCOUNTER → 2021-08-22 | Outpatient (CLI) | payer MEDICARE, BC ==
[~2021-08-22] MED LIST changes: +BUPIVACAINE MPF 0.5% 10 ML VIAL. IJ ONE; -BUPIVACAINE MPF 0.5% 10 ML VIAL. INT ART ONE; +TRIAMCINOLONE PRES.FREE 40 MG/ML VIAL. INT ART ONE; -methylPREDNISolone ACETATE 40 MG/ML VIAL. INT ART ONE
--- NOTE | 2021-08-22 17:23 | KCIC ---
PROCEDURE: Right hip steroid injection under fluoroscopic guidance INDICATION: Osteoarthritis CONTRAST: 1 cc Omnipaque 300 FINDINGS: The risks, benefits and alternatives to the procedure were discussed with the patient. A timeout was performed to confirm the patient's identity and laterality of the injection. Utilizing sterile technique, fluoroscopic guidance and local anesthesia with 1% lidocaine, the right hip joint was accessed utilizing a 22-gauge 3.5" spinal needle. A small amount contrast was used to c onfirm the intra-articular location of the needle tip. Subsequently, a mixture containing 2 cc bupiva braxton and 80 mg Kenalog was injected. There were no immediate complications. Fluoroscopy time: 13 seconds Number of images obtained: 1 Impression: Technically successful right hip steroid injection under fluoroscopic guidance. Electronically signed by: GEENA MOJICA MD (08/22/2021 5:21 PM) [id number]
== END | disposition home or self-care (01) ==
LOC: KCIC 13:35
PROVIDERS: ATTEND Orthopaedic Surgery Sports Medicine
DX: M16.11 Unilateral primary osteoarthritis, right hip (principal); I10 Essential (primary) hypertension; E78.00 Pure hypercholesterolemia, unspecified; E03.9 Hypothyroidism, unspecified; Z90.710 Acquired absence of both cervix and uterus; Z98.890 Other specified postprocedural states; Z79.899 Other long term (current) drug therapy; Z72.89 Other problems related to lifestyle; Z88.8 Allergy status to other drugs, medicaments and biological substances
CPT/HCPCS: 20610; 77002; J3301; J3490; Q9967